=== PATIENT | female | born 1980 | race Caucasian/White ===

== ENCOUNTER 2016-09-18 04:59 | Observation (INO) | payer OTHER ==
[~2016-09-18] VITALS: Ht 162.6 cm; Wt 64.0 kg
[2016-09-18] MEDS ORDERED: PREN1TAB80 PO (05:59)
[2016-09-18 07:44] VITALS: BP 113/67
== END 2016-09-18 07:45 | disposition home or self-care (01) ==
LOC: 4S 04:59
PROVIDERS: ADMIT Obstetrics & Gynecology; ATTEND Obstetrics & Gynecology
DX: O46.93 Antepartum hemorrhage, unspecified, third trimester (principal); O26.893 Other specified pregnancy related conditions, third trimester; R10.9 Unspecified abdominal pain; O09.523 Supervision of elderly multigravida, third trimester; Z3A.39 39 weeks gestation of pregnancy
CPT/HCPCS: 59025

== ENCOUNTER 2016-09-19 12:40 | Inpatient (IN) | payer OTHER ==
[~2016-09-19] VITALS: Ht 162.6 cm; Wt 62.6 kg
[~2016-09-19 12:40] MED LIST: PREN1TAB80 PO
[2016-09-19] MEDS ORDERED: OXYTOCIN 30 UNITS/LACT RINGERS 500 ML IV PRN (13:37)
[2016-09-19] MEDS ORDERED: RINGERS SOLUTION,LACTATED 1,000 ML IV PRN (13:37)
[2016-09-19] MEDS ORDERED: CITRIC ACID/SODIUM CITRATE 30 ML SOLUTION UDCUP PO PRN (13:45)
[2016-09-19] MEDS ORDERED: METOCLOPRAMIDE HCL 5 MG/ML 2 ML VIAL IVP PRN (13:45)
[2016-09-19] MEDS ORDERED: LIDOCAINE HCL/PF 2% 5 ML VIAL ONE (14:11)
[2016-09-19] MEDS ORDERED: FentaNYL/BUPIV 0.125%/NS/PF 200 ML ED ONE (14:11)
[2016-09-19 14:16] LABS: BASOPHILS # (AUTO) 0.02 K/uL (0.00-0.20); BASOPHILS % (AUTO) 0.2 % (0.0-2.0); EOSINOPHILS # (AUTO) 0.06 K/uL (0.00-0.70); EOSINOPHILS % (AUTO) 0.71 % (1.0-6.0); HEMATOCRIT 36.9 % (36-46); LYMPHOCYTES # (AUTO) 1.7 K/uL (1.0-4.8); LYMPHOCYTES % (AUTO) 18.3 % (22.0-44.0); MEAN CORPUSCULAR HGB CONC 32.5 G/dL (31.0-37.0); MEAN CORPUSCULAR VOLUME 92 fL (80-100); MONOCYTES # (AUTO) 0.6 K/uL (0.1-1.0); MONOCYTES % (AUTO) 6.3 % (2.0-9.0); NEUTROPHILS # (AUTO) 6.7 K/uL (1.8-7.7); NEUTROPHILS % (AUTO) 74.4 % (40.0-70.0); RED BLOOD CELL COUNT(AUTO) 3.99 MIL/uL (4.00-5.20); RED CELL DISTRIBUTION WIDTH 18.6 % (11.5-14.5); WHITE BLOOD COUNT (AUTO) 9.1 K/uL (4.5-11.0)
[2016-09-19] MEDS: FentaNYL CITRATE-PF 100 MCG/2 ML VIAL IVP PRN ×4 (14:25→16:18)
[2016-09-19 14:28] VITALS: BP 121/57
[2016-09-19 15:15] LABS: RBC MORPHOLOGY COMMENT ABNORMAL RBC MORPH
[2016-09-19] MEDS: RINGERS SOLUTION,LACTATED 1,000 ML IV SCH ×2 (16:10→22:45)
[2016-09-19] MEDS ORDERED: FentaNYL/BUPIV 0.125%/NS/PF 200 ML ED PRN (18:57)
[2016-09-19] MEDS ORDERED: ONDANSETRON HCL 4 MG/2 ML VIAL IVP PRN (19:00)
[2016-09-19] MEDS ORDERED: DiphenhydrAMINE HCL 50 MG/ML VIAL IVP PRN (19:00)
[2016-09-19] MEDS ORDERED: OXYGEN THERAPY IH SCH (20:00)
[2016-09-20] MEDS ORDERED: FentaNYL/BUPIV 0.125%/NS/PF 200 ML ED ONE (09:15)
[2016-09-20] MEDS ORDERED: CeFAZolin 2 GM/DEXTROSE 50 ML IV ONE (15:52)
[2016-09-20] MEDS ORDERED: LANOLIN 7 GM OINTMENT TP PRN (16:15)
[2016-09-20] MEDS ORDERED: GLYCERIN/WITCH HAZEL LEAF 40 PADS JAR TP PRN (16:15)
[2016-09-20] MEDS ORDERED: BENZOCAINE 20%/MENTHOL 56 GM SPRAY CANISTER TP PRN (16:15)
[2016-09-20] MEDS ORDERED: ACETAMINOPHEN/CODEINE 300-30 MG TABLET PO PRN ×2 (16:15)
[2016-09-20] MEDS: RINGERS SOLUTION,LACTATED 1,000 ML IV SCH (20:05)
[2016-09-20] MEDS: IBUPROFEN 800 MG TABLET PO SCH (20:08)
[2016-09-20] MEDS: MAGNESIUM HYDROXIDE SUSPENSION 30 ML UDCUP PO SCH (20:28)
[2016-09-21] MEDS: IBUPROFEN 800 MG TABLET PO SCH ×3 (01:55→16:00)
[2016-09-21] MEDS: MAGNESIUM HYDROXIDE SUSPENSION 30 ML UDCUP PO SCH (10:19)
[2016-09-21] MEDS ORDERED: IBUP-2070 PO (17:06)
[2016-09-21] MEDS ORDERED: DSS100 PO (17:07)
== END 2016-09-21 18:20 | disposition home or self-care (01) | DRG 775 ==
LOC: OBSVTOIN 12:40 → 4S 12:40
PROVIDERS: ADMIT Obstetrics & Gynecology; ATTEND Obstetrics & Gynecology
PROC: 10D07Z6 Extraction of Products of Conception, Vacuum, Via Natural or Artificial Opening (ICD-10-PCS; principal; 2016-09-19)
PROC: 0KQM0ZZ Repair Perineum Muscle, Open Approach (ICD-10-PCS; 2016-09-19)
PROC: 10907ZC Drainage of Amniotic Fluid, Therapeutic from Products of Conception, Via Natural or Artificial Opening (ICD-10-PCS; 2016-09-19)
PROC: 3E0S3CZ (ICD-10-PCS; 2016-09-19)
PROC: 00HU33Z Insertion of Infusion Device into Spinal Canal, Percutaneous Approach (ICD-10-PCS; 2016-09-19)
DX: O66.5 Attempted application of vacuum extractor and forceps (principal); O70.1 Second degree perineal laceration during delivery; Z3A.39 39 weeks gestation of pregnancy
CPT/HCPCS: J0690; J2590; J3010; J3490; J7120